=== PATIENT | male | born 1985 | race American Indian/Alaskan Native ===

== ENCOUNTER 2016-09-11 11:29 | Emergency (ER) | payer OTHER ==
[2016-09-11] MEDS ORDERED: DIPRIVAN 10 MG/ML IV ONE ×2 (12:07)
[2016-09-11 12:39] LABS: Basophils % (Auto) 0.9 % (0.0-1.8); Hematocrit 47.7 % (35.5-45.6); Hemoglobin 15.7 gm/dl (11.8-15.2); Mean Corpuscular HGB Conc 33 % (32-34); Mean Corpuscular Hemoglobin 29 pg (28-32); Mean Corpuscular Volume 89 fl (84-94); Platelet Count 228 K/mm3 (140-440); Red Blood Count 5.38 M/mm3 (3.65-5.03); Red Cell Distribution Width 13.5 % (13.2-15.2); White Blood Count 6.9 K/mm3 (4.5-11.0)
[2016-09-11 12:45] LABS: Alanine Aminotransferase 49 units/L (7-56); Albumin 4.2 g/dL (3.9-5); Albumin/Globulin Ratio 1.1 %; Alkaline Phosphatase 74 units/L (35-129); Anion Gap 20 mmol/L; BUN/Creatinine Ratio 16.25; Blood Urea Nitrogen 13 mg/dL (9-20); Carbon Dioxide 28 mmol/L (22-30); Glucose 123 mg/dL (75-100); Lipase 16 units/L (13-60); Potassium 4.5 mmol/L (3.6-5.0); Sodium 140 mmol/L (137-145); Total Protein 8.1 g/dL (6.3-8.2)
[2016-09-11 13:14] LABS: Bilirubin,Urine NEG (Negative); Blood,Urine NEG (Negative); Ketones,Urine NEG (Negative); Leukocyte Esterase,Urine NEG (Negative); Mucus,Urine 2+ /HPF; Nitrite,Urine NEG (Negative); Protein,Urine <15 mg/dL mg/dL (Negative); Urobilinogen,Urine < 2.0 mg/dL (<2.0)
[2016-09-11 20:56] VITALS: BP 103/56
[2016-09-11] MEDS ORDERED: NACL 0.9% 1000 ML 1,000 ML IV ONE (21:12)
[2016-09-11] MEDS ORDERED: ZOFRAN IV ONE (21:12)
--- NOTE | 2016-09-11 21:16 | Emergency Department Report ---
ED Abdominal Pain HPI - General Chief Complaint: Abdominal Pain Stated Complaint: N/V Time Seen by Provider: 09/11/16 21:12 Source: patient Mode of arrival: Ambulatory Limitations: No Limitations - History of Present Illness Initial Comments: Patient is a 31-year-old male with no previous medical history presenting to the ER with nausea vomiting and crampy abdominal pain x one day. He reports he ate some wings out of her last night and a few hours after became ill. He reports greater than 10 times vomiting today and is having normal bowel movements today. Otherwise no fevers, chills, chest pain, shortness of breath, travel, trauma, recent antibiotics, or sick contacts MD Complaint: abdominal pain, other (NV) Severity scale (0 -10): 7 - Related Data Previous Rx's Medication Instructions Recorded Last Taken Type Ondansetron [Zofran INJ] 8 mg PO ONCE PRN #12 vial 09/11/16 Unknown Rx Allergies Allergy/AdvReac Type Severity Reaction Status Date / Time No Known Allergies Allergy Verified 09/11/16 11:59 ED Review of Systems ROS: Stated complaint: N/V Other details as noted in HPI Comment: All other systems reviewed and negative ED Past Medical Hx - Past Medical History Previous Medical History?: No - Surgical History Past Surgical History?: No - Social History Smoking Status: Former Smoker Substance Use Type: Alcohol - Medications Home Medications: Home Medications Medication Instructions Recorded Confirmed Last Taken Type Ondansetron [Zofran INJ] 8 mg PO ONCE PRN #12 vial 09/11/16 Unknown Rx ED Physical Exam - General Limitations: No Limitations General appearance: alert, in no apparent distress - Head Head exam: Present: atraumatic, normocephalic - Eye Eye exam: Present: normal appearance - ENT ENT exam: Present: normal exam, mucous membranes dry - Neck Neck exam: Present: normal inspection - Respiratory Respiratory exam: Present: normal lung sounds bilaterally. Absent: respiratory distress - Cardiovascular Cardiovascular Exam: Present: regular rate, normal rhythm. Absent: systolic murmur, diastolic murmur, rubs, gallop - GI/Abdominal GI/Abdominal exam: Present: soft, normal bowel sounds. Absent: distended, tenderness, guarding, rebound, rigid, hyperactive bowel sounds, organomegaly, pulsatile mass, hernia - Rectal Rectal exam: Present: deferred - Extremities Exam Extremities exam: Present: normal inspection - Back Exam Back exam: Present: normal inspection - Neurological Exam Neurological exam: Present: alert, oriented X3 - Psychiatric Psychiatric exam: Present: normal affect, normal mood - Skin Skin exam: Present: warm, dry, intact, normal color. Absent: rash ED Course Vital Signs 09/11/16 09/11/16 09/11/16 12:02 19:33 19:47 Temperature 98.5 F 99.0 F Pulse Rate 59 L 67 62 Respiratory 16 18 Rate Blood Pressure 107/63 114/72 O2 Sat by Pulse 99 Oximetry 09/11/16 09/11/16 09/11/16 20:00 20:05 20:30 Temperature 98.3 F Pulse Rate 60 69 Respiratory 13 14 Rate Blood Pressure 117/64 103/56 O2 Sat by Pulse 100 99 Oximetry 09/11/16 20:56 Temperature Pulse Rate Respiratory 18 Rate Blood Pressure O2 Sat by Pulse 100 Oximetry ED Medical Decision Making - Lab Data Result diagrams: 09/11/16 12:10 09/11/16 12:10 Critical care attestation.: If time is entered above; I have spent that time in minutes in the direct care of this critically ill patient, excluding procedure time. ED Disposition Clinical Impression: Abdominal pain, Nausea & vomiting Disposition: DISCHARGED TO HOME OR SELFCARE Is pt being admited?: No Condition: Stable Instructions: Acute Nausea and Vomiting (ED), Abdominal Pain (ED) Prescriptions: Ondansetron [Zofran INJ] 8 mg PO ONCE PRN #12 vial PRN Reason: Nausea Referrals: PRIMARY CARE, [Primary Care Provider] - 3-5 Days
== END 2016-09-12 02:26 | disposition home or self-care (01) ==
LOC: ED 11:29
DX: R10.9 Unspecified abdominal pain (principal); R11.2 Nausea with vomiting, unspecified
CPT/HCPCS: 36415; 80053; 81001; 83690; 85025; 96361; 96374; 99284; J2405; J7030; J2704

== ENCOUNTER 2017-08-03 20:00 | Emergency (ER) | payer OTHER ==
[2017-08-03 20:13] VITALS: BP 125/69
[2017-08-03] MEDS ORDERED: MOTRIN PO ONE (21:02)
--- NOTE | 2017-08-03 21:03 | Emergency Department Report ---
ED ENT HPI - General Chief complaint: Sore Throat Stated complaint: LEFT ARM PAIN,SORE THROAT Time Seen by Provider: 08/03/17 20:53 Source: patient Mode of arrival: Ambulatory Limitations: No Limitations - History of Present Illness Initial comments: pt is a 32 y/o aam with hx strep throat who present for sore throat fever dysphagia pain described as 5/10 aching pt is tolerating po intake there no n/ no ear pain MD complaint: sore throat Onset/Timin -: days(s) Location: throat Severity: moderate Severity scale (0 -10): 4 Quality: aching, sharp, other (burning ) Consistency: intermittent Improves with: none Worsens with: swallowing Associated Symptoms: fever, pain with swallowing, sore throat. denies: cough, gum swelling, toothache, tinnitus, hearing loss, discharge from ear, rhinorrhea - Related Data Previous Rx's Medication Instructions Recorded Last Taken Type Ondansetron [Zofran ODT TAB] 8 mg PO Q8HR PRN #12 tab.rapdis 09/12/16 Unknown Rx Amoxicillin 500 mg PO TID #30 capsule 08/03/17 Unknown Rx Benzocaine/Menth/Cetylpyrd 8 each MM Q4H PRN #3 packet 08/03/17 Unknown Rx [Cepacol X Strength] Ibuprofen 800 mg PO TID PRN #30 tablet 08/03/17 Unknown Rx Allergies Allergy/AdvReac Type Severity Reaction Status Date / Time No Known Allergies Allergy Verified 09/11/16 11:59 ED Dental HPI - General Chief complaint: Sore Throat Stated complaint: LEFT ARM PAIN,SORE THROAT Time Seen by Provider: 08/03/17 20:53 Source: patient Mode of arrival: Ambulatory Limitations: No Limitations - Related Data Previous Rx's Medication Instructions Recorded Last Taken Type Ondansetron [Zofran ODT TAB] 8 mg PO Q8HR PRN #12 tab.rapdis 09/12/16 Unknown Rx Amoxicillin 500 mg PO TID #30 capsule 08/03/17 Unknown Rx Benzocaine/Menth/Cetylpyrd 8 each MM Q4H PRN #3 packet 08/03/17 Unknown Rx [Cepacol X Strength] Ibuprofen 800 mg PO TID PRN #30 tablet 08/03/17 Unknown Rx Allergies Allergy/AdvReac Type Severity Reaction Status Date / Time No Known Allergies Allergy Verified 09/11/16 11:59 ED Review of Systems ROS: Stated complaint: LEFT ARM PAIN,SORE THROAT Other details as noted in HPI Constitutional: chills, fever Eyes: denies: eye pain, eye discharge, vision change ENT: throat pain Respiratory: denies: cough, shortness of breath, wheezing Cardiovascular: denies: chest pain, palpitations Endocrine: no symptoms reported Gastrointestinal: denies: abdominal pain, nausea, diarrhea Genitourinary: denies: urgency, dysuria Musculoskeletal: denies: back pain, joint swelling, arthralgia Skin: denies: rash, lesions Neurological: denies: headache, weakness, paresthesias Psychiatric: denies: anxiety, depression Hematological/Lymphatic: denies: easy bleeding, easy bruising ED Past Medical Hx - Past Medical History Previous Medical History?: No - Surgical History Past Surgical History?: Yes Additional Surgical History: eye surgery as a child - Social History Smoking Status: Current Some Day Smoker - Medications Home Medications: Home Medications Medication Instructions Recorded Confirmed Last Taken Type Ondansetron [Zofran ODT TAB] 8 mg PO Q8HR PRN #12 tab.rapdis 09/12/16 Unknown Rx Amoxicillin 500 mg PO TID #30 capsule 08/03/17 Unknown Rx Benzocaine/Menth/Cetylpyrd 8 each MM Q4H PRN #3 packet 08/03/17 Unknown Rx [Cepacol X Strength] Ibuprofen 800 mg PO TID PRN #30 tablet 08/03/17 Unknown Rx ED Physical Exam - General Limitations: No Limitations General appearance: alert, in no apparent distress - Head Head exam: Present: atraumatic, normocephalic - Eye Eye exam: Present: normal appearance, PERRL, EOMI - ENT ENT exam: Present: TM's normal bilaterally - Expanded ENT Exam Expanded Mouth exam: Absent: trismus Throat exam: Positive: tonsillar erythema, tonsillomegaly, tonsillar exudate. Negative: R peritonsillar mass, L peritonsillar mass - Neck Neck exam: Present: normal inspection, full ROM. Absent: tenderness, lymphadenopathy, thyromegaly - Expanded Neck Exam Expanded Neck exam: Absent: tenderness, midline deformity, anterior neck swelling, thyroid mass, carotid bruit, tracheal deviation - Respiratory Respiratory exam: Present: normal lung sounds bilaterally. Absent: respiratory distress, wheezes, rhonchi, stridor, chest wall tenderness - Cardiovascular Cardiovascular Exam: Present: regular rate, normal rhythm, normal heart sounds. Absent: systolic murmur, diastolic murmur, rubs, gallop - GI/Abdominal GI/Abdominal exam: Present: soft, normal bowel sounds. Absent: distended, tenderness, guarding, rebound, rigid, organomegaly, mass, bruit, pulsatile mass , hernia - Rectal Rectal exam: Present: deferred - Extremities Exam Extremities exam: Present: normal inspection, full ROM, normal capillary refill. Absent: tenderness, pedal edema, joint swelling, calf tenderness - Back Exam Back exam: Present: normal inspection, full ROM. Absent: tenderness, CVA tenderness (R), CVA tenderness (L), muscle spasm, paraspinal tenderness, vertebral tenderness, rash noted - Neurological Exam Neurological exam: Present: alert, oriented X3, CN II-XII intact, normal gait, reflexes normal - Psychiatric Psychiatric exam: Present: normal affect, normal mood - Skin Skin exam: Present: warm, dry, intact, normal color. Absent: rash ED Course Vital Signs 08/03/17 20:08 Temperature 98.6 F Pulse Rate 103 H Respiratory 18 Rate Blood Pressure 125/69 O2 Sat by Pulse 96 Oximetry ED Medical Decision Making - Medical Decision Making pt is a 32 y/o aam with hx strep throat who present for sore throat fever dysphagia pain described as 5/10 aching pt is tolerating po intake there no n/ no ear pain exam: pharynx: moderate erythema tonsilarmegally mild exudate swelling no abscess uvula is midline not stridor tms clear nose clear lungs are clear no wheezing pt is tolerating po intake plan: amoxicillin , ibuprofen, decadron, cepacol follow up with primary care in 2-3 days pt verbalized agreement and understanding of discharge plan. Critical care attestation.: If time is entered above; I have spent that time in minutes in the direct care of this critically ill patient, excluding procedure time. ED Disposition Clinical Impression: Acute bacterial pharyngitis Disposition: TO HOME OR SELFCARE Is pt being admited?: No Does the pt Need Aspirin: No Condition: Good Instructions: Pharyngitis (ED) Prescriptions: Amoxicillin 500 mg PO TID #30 capsule Benzocaine/Menth/Cetylpyrd [Cepacol X Strength] 8 each MM Q4H PRN #3 packet PRN Reason: throat pain Ibuprofen 800 mg PO TID PRN #30 tablet PRN Reason: pain fever Referrals: ROB JENKINS MD [Staff Physician] - 3-5 Days Forms: Work/School Release Form(ED) Time of Disposition: 21:10
[2017-08-03] MEDS ORDERED: DECADRON IM ONE (21:04)
== END 2017-08-03 21:15 | disposition home or self-care (01) ==
LOC: ED 20:00
DX: J02.9 Acute pharyngitis, unspecified (principal); F17.200 Nicotine dependence, unspecified, uncomplicated
CPT/HCPCS: 96372; 99282; J1100

== ENCOUNTER 2019-07-27 10:09 | Emergency (ER) | payer OTHER ==
[2019-07-27] MEDS ORDERED: ACETAMINOPHEN 325 MG TAB PO ONE (10:18)
[2019-07-27] MEDS ORDERED: ACETAMINOPHEN 325 MG TAB ONE (10:20)
[2019-07-27] MEDS ORDERED: IBUPROFEN 800 MG TAB PO ONE (12:43)
--- NOTE | 2019-07-27 12:50 | Emergency Department Report ---
ED ENT HPI - General Chief complaint: Sore Throat Stated complaint: FLU SYM Time Seen by Provider: 07/27/19 12:25 Source: patient Mode of arrival: Ambulatory Limitations: No Limitations - History of Present Illness Initial comments: 34-year-old -[place] male patient without significant past medical history presents with complaints of sore throat, body aches, and fever (101) x6 days. He rates his pain as 8/10 in severity and states it worsens with swallowing. He also complains of a decreased appetite. He denies any cough, congestion, chest pain, rash, difficulty opening his jaw, or history of recurrent strep. He reports [id number] NyQuil is not helping - Related Data Previous Rx's Medication Instructions Recorded Last Taken Type Ondansetron [Zofran ODT TAB] 8 mg PO Q8HR PRN #12 tab.rapdis 09/12/16 Unknown Rx Amoxicillin 500 mg PO TID #30 capsule 08/03/17 Unknown Rx Benzocaine/Mentho [Cepacol X 8 each MM Q4H PRN #3 packet 08/03/17 Unknown Rx Strength] Ibuprofen 800 mg PO TID PRN #30 tablet 08/03/17 Unknown Rx Amoxicillin [Trimox CAP] 500 mg PO BID 10 Days #20 capsule 07/27/19 Unknown Rx Ibuprofen [Motrin 800 MG tab] 800 mg PO Q8HR PRN #21 tablet 07/27/19 Unknown Rx Allergies Allergy/AdvReac Type Severity Reaction Status Date / Time No Known Allergies Allergy Verified 09/11/16 11:59 ED Dental HPI - General Chief complaint: Sore Throat Stated complaint: FLU SYM Time Seen by Provider: 07/27/19 12:25 Source: patient Mode of arrival: Ambulatory Limitations: No Limitations - Related Data Previous Rx's Medication Instructions Recorded Last Taken Type Ondansetron [Zofran ODT TAB] 8 mg PO Q8HR PRN #12 tab.rapdis 09/12/16 Unknown Rx Amoxicillin 500 mg PO TID #30 capsule 08/03/17 Unknown Rx Benzocaine/Mentho [Cepacol X 8 each MM Q4H PRN #3 packet 08/03/17 Unknown Rx Strength] Ibuprofen 800 mg PO TID PRN #30 tablet 08/03/17 Unknown Rx Amoxicillin [Trimox CAP] 500 mg PO BID 10 Days #20 capsule 07/27/19 Unknown Rx Ibuprofen [Motrin 800 MG tab] 800 mg PO Q8HR PRN #21 tablet 07/27/19 Unknown Rx Allergies Allergy/AdvReac Type Severity Reaction Status Date / Time No Known Allergies Allergy Verified 09/11/16 11:59 ED Review of Systems ROS: Stated complaint: FLU SYM Other details as noted in HPI Constitutional: chills, fever, malaise. denies: diaphoresis ENT: throat pain. denies: ear pain Respiratory: denies: cough, shortness of breath Cardiovascular: denies: chest pain Skin: denies: rash, lesions, change in color Neurological: denies: headache Hematological/Lymphatic: denies: swollen glands ED Past Medical Hx - Past Medical History Previous Medical History?: No - Surgical History Past Surgical History?: Yes Additional Surgical History: eye surgery as a child - Social History Smoking Status: Never Smoker Substance Use Type: None - Medications Home Medications: Home Medications Medication Instructions Recorded Confirmed Last Taken Type Ondansetron [Zofran ODT TAB] 8 mg PO Q8HR PRN #12 tab.rapdis 09/12/16 Unknown Rx Amoxicillin 500 mg PO TID #30 capsule 08/03/17 Unknown Rx Benzocaine/Mentho [Cepacol X 8 each MM Q4H PRN #3 packet 08/03/17 Unknown Rx Strength] Ibuprofen 800 mg PO TID PRN #30 tablet 08/03/17 Unknown Rx Amoxicillin [Trimox CAP] 500 mg PO BID 10 Days #20 capsule 07/27/19 Unknown Rx Ibuprofen [Motrin 800 MG tab] 800 mg PO Q8HR PRN #21 tablet 07/27/19 Unknown Rx ED Physical Exam - General Limitations: No Limitations General appearance: alert, in no apparent distress - Head Head exam: Present: atraumatic, normocephalic - Eye Eye exam: Present: normal appearance. Absent: scleral icterus - ENT ENT exam: Present: mucous membranes moist - Expanded ENT Exam Expanded Mouth exam: Absent: drooling, trismus Throat exam: Positive: tonsillar erythema, tonsillomegaly, tonsillar exudate. Negative: R peritonsillar mass, L peritonsillar mass - Neck Neck exam: Present: full ROM, lymphadenopathy (Mild anterior cervical). Absent: tenderness - Respiratory Respiratory exam: Present: normal lung sounds bilaterally. Absent: respiratory distress - Cardiovascular Cardiovascular Exam: Present: regular rate, normal rhythm. Absent: systolic murmur, diastolic murmur, rubs, gallop - Neurological Exam Neurological exam: Present: alert, oriented X3 - Psychiatric Psychiatric exam: Present: normal affect, normal mood - Skin Skin exam: Present: warm, dry, intact, normal color. Absent: rash, cyanosis, diaphoretic, erythema, petechiae, ecchymosis ED Course Vital Signs 07/27/19 07/27/19 07/27/19 10:15 13:34 14:14 Temperature 100.1 F H 100.3 F H 99.6 F Pulse Rate 109 H 100 H 84 Respiratory 20 18 Rate Blood Pressure 117/70 Blood Pressure 110/65 [Left] O2 Sat by Pulse 97 97 Oximetry ED Medical Decision Making - Medical Decision Making With complaints of sore throat and fever for the past 6 days. Erythemic swollen tonsils noted bilaterally with exudate. Centor's criteria score = 4. Patient initially febrile at 100.1 upon arrival, temp now 99.6. Heart rate is normal. We will treat empirically for strep pharyngitis with Amoxil. Recommend follow- up with primary care provider within 5 days. Discussed very strict return precautions in great detail with patient who verbalizes understanding. Critical care attestation.: If time is entered above; I have spent that time in minutes in the direct care of this critically ill patient, excluding procedure time. ED Disposition Clinical Impression: Strep pharyngitis Disposition: DC-01 TO HOME OR SELFCARE Is pt being admited?: No Condition: Stable Instructions: Strep Throat (ED) Prescriptions: Ibuprofen [Motrin 800 MG tab] 800 mg PO Q8HR PRN #21 tablet PRN Reason: pain/fever Amoxicillin [Trimox CAP] 500 mg PO BID 10 Days #20 capsule Forms: Work/School Release Form(ED)
[2019-07-27 13:39] VITALS: BP 110/65
[2019-07-27] MEDS ORDERED: AMOXICILLIN 500 MG CAP PO ONE (14:09)
== END 2019-07-27 14:33 | disposition home or self-care (01) ==
LOC: ED 10:09
DX: J02.0 Streptococcal pharyngitis (principal); R63.0 Anorexia; Z79.899 Other long term (current) drug therapy; Z98.890 Other specified postprocedural states
CPT/HCPCS: 99282

== ENCOUNTER 2019-11-03 21:21 | Emergency (ER) | payer OTHER ==
[2019-11-03 21:48] VITALS: BP 123/78
[2019-11-03] MEDS ORDERED: BUTALB/ACETAMINOPHEN/CAFFEINE TAB PO ONE (23:31)
[2019-11-03] MEDS ORDERED: KETOROLAC 30 MG/1 ML INJ IM ONE (23:31)
[2019-11-03] MEDS ORDERED: ONDANSETRON 4 MG ODT TAB PO ONE (23:31)
[2019-11-03] MEDS ORDERED: LIDOCAINE VISCOUS 2% 15 ML ORAL LIQD PO ONE (23:31)
[2019-11-03] MEDS ORDERED: PENICILLIN G BENZATHINE 1.2 MILLION UNIT/2 ML INJ IM ONE (23:31)
--- NOTE | 2019-11-04 00:28 | Emergency Department Report ---
ED General Adult HPI - General Chief complaint: Headache Stated complaint: CEJA Source: patient Mode of arrival: Ambulatory Limitations: No Limitations - History of Present Illness Initial comments: Patient is a 34-year-old -[place] male with no past medical history presents to the ED with complaint of acute onset persistent severe headache, severe sore throat with dysphagia, drooling, bilateral ear pain and body aches for the last 1 week, worse in the last 2 days. Patient states that he has been taking jlnl-[id number]-[id number] medication with no relief. Patient denies dizziness, syncope, nausea and vomiting, diarrhea, chest pain, shortness of breath, nasal and sinus congestion, neck pain, change in vision, abdominal pain, dysuria, urinary frequency and urgency and testicular pain. MD Complaint: Sore throat; bilateral ear pain -: week(s) (1) Location: face (bilateral ear), mouth (throat pain) Radiation: non-radiation Severity scale (0 -10): 7 Quality: aching, sharp Consistency: constant Improves with: none Worsens with: none Associated Symptoms: denies other symptoms. denies: confusion, chest pain, cough, diaphoresis, fever/chills, headaches, loss of appetite, malaise, nausea/vomiting, rash, seizure, shortness of breath, syncope, weakness, other Treatments Prior to Arrival: none - Related Data Previous Rx's Medication Instructions Recorded Last Taken Type Ondansetron [Zofran ODT TAB] 8 mg PO Q8HR PRN #12 tab.rapdis 09/12/16 Unknown Rx Amoxicillin 500 mg PO TID #30 capsule 08/03/17 Unknown Rx Benzocaine/Mentho [Cepacol X 8 each MM Q4H PRN #3 packet 08/03/17 Unknown Rx Strength] Ibuprofen 800 mg PO TID PRN #30 tablet 08/03/17 Unknown Rx Amoxicillin [Trimox CAP] 500 mg PO BID 10 Days #20 capsule 07/27/19 Unknown Rx Ibuprofen [Motrin 800 MG tab] 800 mg PO Q8HR PRN #21 tablet 07/27/19 Unknown Rx Amoxicillin [Trimox CAP] 500 mg PO Q8H #30 capsule 11/04/19 Unknown Rx Ibuprofen [Motrin] 800 mg PO Q8HR PRN #30 tablet 11/04/19 Unknown Rx Lidocaine Viscous 2% 10 ml PO Q6H PRN #120 ml 11/04/19 Unknown Rx methylPREDNISolone [Medrol 4MG 4 mg PO DAILY #21 tab.ds.pk 11/04/19 Unknown Rx DOSEPAK (21 tabs)] Allergies Allergy/AdvReac Type Severity Reaction Status Date / Time No Known Allergies Allergy Verified 09/11/16 11:59 ED Review of Systems ROS: Stated complaint: CEJA Other details as noted in HPI Constitutional: denies: chills, fever Eyes: denies: eye pain, eye discharge, vision change ENT: ear pain (bilateral ear pain), throat pain (sore throat) Respiratory: denies: cough, shortness of breath, wheezing Cardiovascular: denies: chest pain, palpitations Endocrine: no symptoms reported Gastrointestinal: denies: abdominal pain, nausea, diarrhea Genitourinary: denies: urgency, dysuria Musculoskeletal: denies: back pain, joint swelling, arthralgia Skin: denies: rash, lesions Neurological: headache. denies: weakness, paresthesias Psychiatric: denies: anxiety, depression Hematological/Lymphatic: denies: easy bleeding, easy bruising ED Past Medical Hx - Past Medical History Previous Medical History?: No - Surgical History Additional Surgical History: eye surgery as a child - Social History Smoking Status: Never Smoker Substance Use Type: Alcohol - Medications Home Medications: Home Medications Medication Instructions Recorded Confirmed Last Taken Type Ondansetron [Zofran ODT TAB] 8 mg PO Q8HR PRN #12 tab.rapdis 09/12/16 Unknown Rx Amoxicillin 500 mg PO TID #30 capsule 08/03/17 Unknown Rx Benzocaine/Mentho [Cepacol X 8 each MM Q4H PRN #3 packet 08/03/17 Unknown Rx Strength] Ibuprofen 800 mg PO TID PRN #30 tablet 08/03/17 Unknown Rx Amoxicillin [Trimox CAP] 500 mg PO BID 10 Days #20 capsule 07/27/19 Unknown Rx Ibuprofen [Motrin 800 MG tab] 800 mg PO Q8HR PRN #21 tablet 07/27/19 Unknown Rx Amoxicillin [Trimox CAP] 500 mg PO Q8H #30 capsule 11/04/19 Unknown Rx Ibuprofen [Motrin] 800 mg PO Q8HR PRN #30 tablet 11/04/19 Unknown Rx Lidocaine Viscous 2% 10 ml PO Q6H PRN #120 ml 11/04/19 Unknown Rx methylPREDNISolone [Medrol 4MG 4 mg PO DAILY #21 tab.ds.pk 11/04/19 Unknown Rx DOSEPAK (21 tabs)] ED Physical Exam - General Limitations: No Limitations General appearance: alert, in no apparent distress - Head Head exam: Present: atraumatic, normocephalic, normal inspection - Eye Eye exam: Present: normal appearance, PERRL, EOMI Pupils: Present: normal accommodation - ENT ENT exam: Present: mucous membranes moist, normal external ear exam, other (Erythematous bulging TM bilaterally; erythematous oropharynx ) - Neck Neck exam: Present: normal inspection, full ROM, lymphadenopathy. Absent: tenderness - Respiratory Respiratory exam: Present: normal lung sounds bilaterally. Absent: respiratory distress, wheezes, rales, stridor, chest wall tenderness, accessory muscle use, prolonged expiratory - Cardiovascular Cardiovascular Exam: Present: regular rate, normal rhythm, normal heart sounds. Absent: systolic murmur, diastolic murmur, rubs, gallop - GI/Abdominal GI/Abdominal exam: Present: soft, normal bowel sounds. Absent: tenderness, guarding, rebound, hyperactive bowel sounds, hypoactive bowel sounds - Extremities Exam Extremities exam: Present: normal inspection, full ROM, normal capillary refill - Back Exam Back exam: Present: normal inspection, full ROM. Absent: tenderness, CVA tenderness (R), muscle spasm, paraspinal tenderness, vertebral tenderness - Neurological Exam Neurological exam: Present: alert, oriented X3, CN II-XII intact, normal gait, reflexes normal - Psychiatric Psychiatric exam: Present: normal affect, normal mood - Skin Skin exam: Present: warm, dry, intact, normal color. Absent: rash ED Course Vital Signs 11/03/19 21:38 Temperature 99.1 F Pulse Rate 95 H Respiratory 18 Rate Blood Pressure 123/78 O2 Sat by Pulse 100 Oximetry ED Medical Decision Making - Medical Decision Making This is a 34-year-old -[place] male with no past medical history presents to the ED with complaint of acute onset persistent severe headache, severe sore throat with dysphagia, drooling, bilateral ear pain and body aches for the last 1 week, worse in the last 2 days. Patient states that he has been taking [id number] medication with no relief. In the ED, patient is alert and oriented x3 and is not in distress but appears to be in significant pain. Patient was treated in the ED empirically with Bicillin LA 1,200,000 units intramuscular injection with pain medications. On reevaluation, patient's pain is well controlled with medications. Patient was discharged home on medications including antibiotics for otitis media. Patient was advised to follow-up with his primary care physician in 7 to 10 days for reevaluation or return to the ED immediately if symptoms get worse. - Differential Diagnosis Strep pharyngitis; otitis media, URI, sinus headache, tension headache Critical care attestation.: If time is entered above; I have spent that time in minutes in the direct care of this critically ill patient, excluding procedure time. ED Disposition Clinical Impression: Acute streptococcal pharyngitis, Acute otitis media with effusion of both ears Tension type headache Qualifiers: Headache chronicity pattern: acute headache Intractability: not intractable Qualified Code(s): G44.209 - Tension-type headache, unspecified, not intractable Disposition: DC-01 TO HOME OR SELFCARE Is pt being admited?: No Does the pt Need Aspirin: No Condition: Stable Instructions: Pharyngitis (ED), Strep Throat (ED), Otitis Media (ED) Additional Instructions: Take medication with food, drink plenty of fluids and follow-up with your primary care physician in 7 to 10 days for reevaluation. Return to the ED immediately if symptoms get worse. Prescriptions: Lidocaine Viscous 2% 10 ml PO Q6H PRN #120 ml PRN Reason: Pain , Severe (7-10) methylPREDNISolone [Medrol 4MG DOSEPAK (21 tabs)] 4 mg PO DAILY #21 tab.ds.pk Ibuprofen [Motrin] 800 mg PO Q8HR PRN #30 tablet PRN Reason: Pain , Severe (7-10) Amoxicillin [Trimox CAP] 500 mg PO Q8H #30 capsule Referrals: [facility] [Provider Group] - 3-5 Days [facility] [Outside] - 3-5 Days Forms: Work/School Release Form(ED) Time of Disposition: 00:28 Print Language: WOLOF
== END 2019-11-04 01:00 | disposition home or self-care (01) ==
LOC: ED 21:21
DX: J02.0 Streptococcal pharyngitis (principal); H65.193 Other acute nonsuppurative otitis media, bilateral; G44.209 Tension-type headache, unspecified, not intractable
CPT/HCPCS: 96372; 99282; J0561; J1885; Q0162

== ENCOUNTER 2021-06-03 16:37 | Emergency (ER) | payer SELFPAY ==
[2021-06-03 20:25] VITALS: BP 113/77
--- NOTE | 2021-06-03 20:26 | Emergency Department Report ---
- General Stated Complaint: HEADACHE/BODYPAIN Time Seen by Provider: 06/03/21 20:23 - History of Present Illness Initial Comments: Patient presents with a 1 day history of headache associate with muscle aches and body aches. He has had subjective fevers and chills. Has been coughing congestion. He has used kjzq-gng-nstpids URI medicine. This is provided some symptomatic improvement. There is no GI upset. Has no complaints. He has had no known coronavirus exposure. He reports being vaccinated for coronavirus. - Related Data Previous Rx's Medication Instructions Recorded Last Taken Type Ondansetron [Zofran ODT TAB] 8 mg PO Q8HR PRN #12 tab.rapdis 09/12/16 Unknown Rx Amoxicillin 500 mg PO TID #30 capsule 08/03/17 Unknown Rx Benzocaine/Mentho [Cepacol X 8 each MM Q4H PRN #3 packet 08/03/17 Unknown Rx Strength] Ibuprofen 800 mg PO TID PRN #30 tablet 08/03/17 Unknown Rx Amoxicillin [Trimox CAP] 500 mg PO BID 10 Days #20 capsule 07/27/19 Unknown Rx Ibuprofen [Motrin 800 MG tab] 800 mg PO Q8HR PRN #21 tablet 07/27/19 Unknown Rx Amoxicillin [Trimox CAP] 500 mg PO Q8H #30 capsule 11/04/19 Unknown Rx Ibuprofen [Motrin] 800 mg PO Q8HR PRN #30 tablet 11/04/19 Unknown Rx Lidocaine Viscous 2% 10 ml PO Q6H PRN #120 ml 11/04/19 Unknown Rx methylPREDNISolone [Medrol 4MG 4 mg PO DAILY #21 tab.ds.pk 11/04/19 Unknown Rx DOSEPAK (21 tabs)] Albuterol Sulfate [Proventil Hfa] 6.7 gm IH 4XD #1 inh 06/03/21 Unknown Rx Ibuprofen [Motrin] 600 mg PO Q8H PRN #20 tablet 06/03/21 Unknown Rx Ondansetron [Zofran Odt] 4 mg PO Q8HR PRN #20 tab.rapdis 06/03/21 Unknown Rx Allergies Allergy/AdvReac Type Severity Reaction Status Date / Time No Known Allergies Allergy Verified 09/11/16 11:59 ED Review of Systems ROS: Stated complaint: HEADACHE/BODYPAIN Other details as noted in HPI Comment: All other systems reviewed and negative Constitutional: fever Eyes: denies: vision change ENT: denies: throat pain Respiratory: cough Cardiovascular: denies: chest pain Endocrine: denies: unexplained weight loss Gastrointestinal: denies: vomiting Genitourinary: denies: dysuria Musculoskeletal: myalgia. denies: back pain Skin: denies: rash Neurological: as per HPI, headache Hematological/Lymphatic: denies: easy bruising ED Past Medical Hx - Past Medical History Previous Medical History?: No - Surgical History Additional Surgical History: eye surgery as a child - Family History Family history: no significant - Social History Smoking Status: Never Smoker Substance Use Type: Alcohol - Medications Home Medications: Home Medications Medication Instructions Recorded Confirmed Last Taken Type Ondansetron [Zofran ODT TAB] 8 mg PO Q8HR PRN #12 tab.rapdis 09/12/16 Unknown Rx Amoxicillin 500 mg PO TID #30 capsule 08/03/17 Unknown Rx Benzocaine/Mentho [Cepacol X 8 each MM Q4H PRN #3 packet 08/03/17 Unknown Rx Strength] Ibuprofen 800 mg PO TID PRN #30 tablet 08/03/17 Unknown Rx Amoxicillin [Trimox CAP] 500 mg PO BID 10 Days #20 capsule 07/27/19 Unknown Rx Ibuprofen [Motrin 800 MG tab] 800 mg PO Q8HR PRN #21 tablet 07/27/19 Unknown Rx Amoxicillin [Trimox CAP] 500 mg PO Q8H #30 capsule 11/04/19 Unknown Rx Ibuprofen [Motrin] 800 mg PO Q8HR PRN #30 tablet 11/04/19 Unknown Rx Lidocaine Viscous 2% 10 ml PO Q6H PRN #120 ml 11/04/19 Unknown Rx methylPREDNISolone [Medrol 4MG 4 mg PO DAILY #21 tab.ds.pk 11/04/19 Unknown Rx DOSEPAK (21 tabs)] Albuterol Sulfate [Proventil Hfa] 6.7 gm IH 4XD #1 inh 06/03/21 Unknown Rx Ibuprofen [Motrin] 600 mg PO Q8H PRN #20 tablet 06/03/21 Unknown Rx Ondansetron [Zofran Odt] 4 mg PO Q8HR PRN #20 tab.rapdis 06/03/21 Unknown Rx ED Physical Exam - General Limitations: No Limitations, Other (Pulse ox noted and normal) General appearance: alert, in no apparent distress - Head Head exam: Present: atraumatic, normocephalic - Eye Eye exam: Present: normal appearance, EOMI. Absent: scleral icterus - ENT ENT exam: Present: normal external ear exam - Neck Neck exam: Present: normal inspection. Absent: meningismus - Respiratory Respiratory exam: Present: normal lung sounds bilaterally. Absent: respiratory distress - Cardiovascular Cardiovascular Exam: Present: regular rate, normal rhythm - GI/Abdominal GI/Abdominal exam: Present: soft - Extremities Exam Extremities exam: Present: normal capillary refill - Back Exam Back exam: Absent: CVA tenderness (R), CVA tenderness (L) - Neurological Exam Neurological exam: Present: alert, oriented X3, CN II-XII intact, normal gait - Psychiatric Psychiatric exam: Present: normal affect, normal mood - Skin Skin exam: Present: warm, dry ED Course Vital Signs 06/03/21 20:25 Temperature 99.9 F H Pulse Rate 103 H Respiratory 18 Rate Blood Pressure 113/77 [Right] O2 Sat by Pulse 98 Oximetry - Reevaluation(s) Reevaluation #1: 06/04/21 05:21 Patient was treated and released. ED Medical Decision Making - Medical Decision Making Patient presents with a viral constellation of symptoms including headache. He does not have symptoms suggestive of meningitis. He has no meningeal signs. T here is no head trauma to suggest subdural or epidural hematomas. He does not appear to be septic or toxic. Patient does not have adventitious breath sounds suggest pneumonia. He could very well have coronavirus or some other viral infection. Regardless, he does not require admission. He was treated symptomatically and referred for outpatient evaluation. He can isolate and quarantine at home. Patient can undergo outpatient testing for coronavirus. Critical Care Time: No Critical care attestation.: If time is entered above; I have spent that time in minutes in the direct care of this critically ill patient, excluding procedure time. ED Disposition Clinical Impression: Myalgia, Viral URI Acute headache Qualifiers: Headache type: unspecified Intractability: not intractable Qualified Code(s): R51.9 - Headache, unspecified Disposition: 01 HOME / SELF CARE / HOMELESS Is pt being admited?: No Condition: Stable Instructions: Viral Respiratory Infection, [id number], Form - Headache Record, Musculoskeletal Pain Additional Instructions: Use Tylenol for fever. Return for problems. Take the prescriptions as written. Follow-up with your regular doctor or the referral physician for recheck. Prescriptions: Ibuprofen [Motrin] 600 mg PO Q8H PRN #20 tablet PRN Reason: Pain Albuterol Sulfate [Proventil Hfa] 6.7 gm IH 4XD #1 inh Ondansetron [Zofran Odt] 4 mg PO Q8HR PRN #20 tab.rapdis PRN Reason: Nausea Referrals: PRIMARY CARE, [Primary Care Provider] - 3-5 Days
== END 2021-06-03 20:37 | disposition home or self-care (01) ==
LOC: ED 16:37
DX: J06.9 Acute upper respiratory infection, unspecified (principal); M79.18 Myalgia, other site; R51.9 Headache, unspecified
CPT/HCPCS: 99282

== ENCOUNTER 2021-08-13 22:36 | Emergency (ER) | payer SELFPAY ==
[2021-08-14] MEDS ORDERED: ACETAMINOPHEN 500 MG TAB PO ONE (05:05)
[2021-08-14] MEDS ORDERED: predniSONE 20 MG TAB PO ONE (05:05)
[2021-08-14] MEDS ORDERED: diphenhydrAMINE 25 MG CAP PO ONE (05:05)
[2021-08-14] MEDS ORDERED: METOCLOPRAMIDE 10 MG TAB PO ONE (05:05)
--- NOTE | 2021-08-14 05:10 | Event Note ---
ED Screening Note Date of service: 08/14/21 ED Screening Note: Patient 36-year-old male who presents for frontal headache dizziness and intermittent confusion per family member for the past 3 days. There is been no fevers no chills. Patient states previous headaches in similar location previously however this headache is lingering. Patient does endorse intermittent photophobia with nausea vomiting. Patient denies fall injury or trauma. This initial assessment/diagnostic orders/clinical plan/treatment(s) is/are subject to change based on patients health status, clinical progression and re- assessment by fellow clinical providers in the ED. Further treatment and workup at subsequent clinical providers discretion. Patient/guardian urged not to elope from the ED as their condition may be serious if not clinically assessed and managed. Initial orders include: prednisone, tylenol, reglan, benadryl, CT Heade
--- NOTE | 2021-08-14 05:47 | Cat Scan Report ---
CT HEAD WITHOUT CONTRAST INDICATION / CLINICAL INFORMATION: Headache. TECHNIQUE: All CT scans at this location are performed using CT dose reduction for ALARA by means of automated exposure control. COMPARISON: None available. FINDINGS: HEMORRHAGE: None. EXTRA-AXIAL SPACES: There is a 3.8 cm mass along the anterolateral aspect of the suprasellar cistern on the left with extension along the anteromedial aspect of the left temporal lobe. Mild extension al gaudencio the base of the left frontal lobe is noted. The mass is predominantly fat density with a small so ft tissue component and also associated calcification. The mass appears predominantly extra-axial. Th ere are small areas of fat scattered throughout the subarachnoid space bilaterally, more prominent in the region of the anterior interhemispheric fissure.. VENTRICULAR SYSTEM: Normal in size and morphology for the patient's age. CEREBRAL PARENCHYMA: No acute territorial infarct. MIDLINE SHIFT / HERNIATION: None. CEREBELLUM / BRAINSTEM: No significant abnormality. ORBITS: Normal as visualized. SOFT TISSUES: No significant abnormality. SKULL: No significant abnormality. PARANASAL SINUSES / MASTOID AIR CELLS: Normal as visualized. ADDITIONAL FINDINGS: None. IMPRESSION: 1. 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 2. Multiple tiny bubbles of fat are scattered throughout the subarachnoid space, most prominent in th e region of the interhemispheric fissure. The findings are consistent with partial rupture of the gay moid. This can be a cause for a chemical meningitis. Signer Name: Benjamin Hall MD Signed: 08/14/2021 5:42 AM Workstation Name: [id number]
[2021-08-14 07:50] LABS: Basophils # (Auto) 0.1 K/mm3 (0.0-0.1); Basophils % (Auto) 1.1 % (0.0-1.8); Eosinophils % (Auto) 0.7 % (0.0-4.3); Hematocrit 44.5 % (35.5-45.6); Hemoglobin 14.6 gm/dl (11.8-15.2); Lymphocytes % (Auto) 15.3 % (13.4-35.0); Mean Corpuscular HGB Conc 33 % (32-34); Mean Corpuscular Volume 87 fl (84-94); Monocytes # (Auto) 0.2 K/mm3 (0.0-0.8); Monocytes % (Auto) 2.8 % (0.0-7.3); Platelet Count 197 K/mm3 (140-440); Red Blood Count 5.11 M/mm3 (3.65-5.03); Red Cell Distribution Width 13.5 % (13.2-15.2)
[2021-08-14 08:02] LABS: BUN/Creatinine Ratio 14; Blood Urea Nitrogen 11 mg/dL (9-20); Calcium 9.7 mg/dL (8.4-10.2); Hemolysis Index 3
[2021-08-14] MEDS ORDERED: INSULIN REGULAR, HUMAN 100 UNITS/1 ML IV ONE (09:32)
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
[2021-08-14] MEDS ORDERED: dexAMETHasone 4 MG/ML VIAL IV ONE (09:52)
[2021-08-14] MEDS ORDERED: SODIUM CHLORIDE 0.9% 1000 ML 1,000 ML IV ONE (09:55)
[2021-08-14 21:05] VITALS: BP 123/68
== END 2021-08-14 21:06 | disposition hospice, inpatient (51) ==
LOC: ED 22:36
DX: G03.8 Meningitis due to other specified causes (principal); R73.9 Hyperglycemia, unspecified; D33.2 Benign neoplasm of brain, unspecified
CPT/HCPCS: 36415; 70450; 80048; 85025; 87040; 96361; 96374; 96375; 99285; J1100; J7030; Q0162; Q9967; J1815